=== PATIENT | female | born 1990 | race Caucasian/White ===

== ENCOUNTER → 2024-03-28 | Outpatient (CLI) | payer BC, SELFPAY ==
[2024-03-28 14:41] LABS: Hematocrit 43.9 % (37-47); Hemoglobin 14.8 g/dL (12.0-15.0); Mean Corp Hgb Conc 33.7 g/dL (32-36); Mean Corpuscular Hgb 30.8 pg (27.0-32.0); Mean Corpuscular Volume 91.5 fL (81-99); Mean Platelet Vol. 10.4 fl (6.2-12.0); Platelet Count 267 K/mm3 (150-450); RBC Distribution Width CV 12.2 % (11.6-14.6); RBC Distribution Width SD 41.2 fl (35.1-43.9)
[2024-03-28 15:05] LABS: Anion Gap 1 (5-15); BUN 11 mg/dL (7-18); BUN/Creat Ratio 11.7 RATIO (10-20); Calcium,Total 9.2 mg/dL (8.5-10.1); Chloride 108 mmol/L (98-107); Creatinine, Serum 0.94 mg/dL (0.55-1.02); EST Glomerular Filtration Rate 72 mL/min (>60); Est Glom Filt Rate - Afr Amer 87 mL/min (>60); Glucose 86 mg/dL (74-106); Potassium 4.1 mmol/L (3.5-5.1); Sodium Level 138 mmol/L (136-145)
== END | disposition home or self-care (01) ==
LOC: LAB 13:59
PROVIDERS: PCP Family Medicine; Referring Provider Plastic Surgery; Visit Provider Plastic Surgery
DX: L90.9 Atrophic disorder of skin, unspecified (principal); L30.4 Erythema intertrigo; Z87.898 Personal history of other specified conditions
CPT/HCPCS: 36415; 80048; 85027

== ENCOUNTER 2024-06-16 06:01 | Day surgery (SDC) | payer BC, SELFPAY ==
--- NOTE | 2024-06-02 13:31 | PAT.ANE_ITS ---
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 When Was Last Pacemaker Check QUESTION #4 FULL TEXT: You/Your Family Experience fever (hyperthermia) with Anesthesia Last Oral Intake Last Oral intake: Last Oral Intake NPO since Meds taken in AM with sips of water? Meds patient instructed to take am of surgery PONV PONV - soda fountain operator: PONV - soda fountain operator Female Yes 06/02/24 09:22 HX of Motion Sickness Yes 06/02/24 09:22 HX of N/V After Surgery Yes 06/02/24 09:22 Non-Smoker Yes 06/02/24 09:22 Duration of Surgery greater Yes 06/02/24 09:22 than 60 minutes Number of Risk Factors 5 06/02/24 09:22 PONV Score Severe Risk 06/02/24 09:22 Height & Weight Height & Weight: Anesthesia: Height & Weight Height 5 ft 6 in 04/18/24 10:26 Respiratory Assessment Respiratory Assessment - soda fountain operator: Respiratory Tract Infection Hx - soda fountain operator Hx Respiratory Tract Infection No 06/02/24 09:22 STOP Sleep Apnea STOP Sleep Apnea - soda fountain operator: STOP Sleep Apnea - soda fountain operator Hx Hypertension No 06/02/24 09:22 Hx Sleep Apnea No 06/02/24 09:22 CPAP BIPAP Do you snore loudly (louder No 06/02/24 09:22 than talking or can be heard Do you often feel tired/ No 06/02/24 09:22 fatigued/ sleepy during daytime? Has anyone observed you stop No 06/02/24 09:22 breathing during sleep? STOP Results Negative 06/02/24 09:22 QUESTION #5 FULL TEXT : Do you snore loudly (louder than talking or can be heard through closed doors)? 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 Specify any problems Hx of Preganancy in last 3 No 06/02/24 09:22 Months Nurse Filling Out Transfusion VCHRISTIN 06/02/24 09:22 & Questions: Date: 06/02/24 06/02/24 09:22 Time: 09:23 06/02/24 09:22 Patient unable to answer at this time (ie. confused, unrespo /Reproduction History /Reproductive History - soda fountain operator: /Reproductive Hx- soda fountain operator Hx Now No 06/02/24 09:22 Gestational Age (in weeks): EDC: Hx Hx Para Hx Section SAB No 06/02/24 09:22 [facility] Medical History (Updated 06/02/24 @ 09:21 by Montes Strange) Wears glasses Post-menopausal Cancer Anxiety Kidney stones Migraine headache Syncope Cardiology follow-up encounter History of Holter monitoring History of echocardiogram POTS (postural orthostatic tachycardia syndrome) History of frequent headaches Polycystic ovary Hormone deficiency History of melanoma Home Medications ?Medication ?Instructions ?Recorded ?Last Taken ?Type bupropion HCl 150 mg 24 hr tablet, 150 mg PO QAM 01/12 Unknown History extended release desvenlafaxine succinate 25 mg 25 mg PO QDAY 01/13/24 Unknown History tablet,extended release 24 hr spironolactone 100 mg tablet 100 mg PO QDAY 01/13/24 U nknown History topiramate 50 mg capsule,extended 50 mg PO BID 4 Unknown History release 24 hr sucralfate 1 gram tablet 1 g PO 4X/DAY 05/31/24 Unkno wn History omeprazole 40 mg capsule,delayed 40 mg PO DAILY Unknown History release rizatriptan 10 mg tablet 10 mg PO PRN PRN migraine Unknown History Allergy/AdvReac Type Severity Reaction Status Date / Time blueberry Allergy Severe Hives Verified 06/02/24 09:11 raspberry Allergy Severe Hives Verified 06/02/24 09:11 strawberry (strawberries) Allergy Swelling Verified 06/02/24 09:10 Family History Father Alcoholism Diabetes Mother Anxiety Surgical History (Updated 06/02/24 @ 09:21 by Montse Strange) History of laparoscopic cholecystectomy Hx of adenoidectomy History of bilateral breast reduction surgery History of hysterectomy History of delivery Social History Smoking Status: Never smoker alcohol intake: never substance use type: does not use additional social history: no vaping, no marijuana, no edibles, no asa, ibuprofen prn Audit: Pertinent Findings Pertinent Findings EKG Perinent findings: unremarkable ECG in 2024 Additional pertinent findings: Normal pulmonary function METS>=4 Recommendation Anesthesia Recommendation Anesthesia recommendation: OPTIMIZED for anesthesia
[2024-06-16] VITALS (12 sets, daily range): BP systolic 85–103; BP diastolic 46–68; PULSE 55–71; RESP 16; TEMP 36.1–37.2; O2SAT 92–100; BMI 30.2
--- NOTE | 2024-06-16 07:17 | PCM.HP.BLA ---
History and Physical Date of Admission: 06/16/24 The pt is examined and there are no changes to the H&P dated 05/31/24. Pt for panniculectomy. She is marked in the pre-op area. Informed consent is obtained. Assessment & Plan Assessment/Plan (1) History of weight loss: (2) Atrophic skin: (3) Intertrigo: PLAN: Plan Pt for panniculectomy.
--- NOTE | 2024-06-16 07:22 | PRE.ANES_ITS ---
ASA Classification* ASA Classification ASA Classification: 2 Assessment & Plan Anesthesia* Anesthesia Assessment Anesthesia Assessment: Discussed sedation and/or anesthesia options, risks, benefits, and alternatives with patient/parents/legal guardian/POA. Questions invited. The patient/parents/legal guardian/POA seems to understand and agrees to proceed with anesthesia plan. Reviewed the physical assessment, medical history, allergy history and patient home medications list prior to surgery/procedure/anesthetic and documented any changes. Performed airway and anesthesia risk assessments. Anesthesia Type Anesthesia Type: General History Source History Obtained from:: Patient and Chart Anesthesia Focused Assessment* Temperature: 97.7 F Pulse Rate: 55 Blood Pressure: 98/68 Respiratory Rate: 16 Pulse Ox: 100 Oxygen Delivery Method: Room Air Airway Assessment Mouth opens: >3 cm Mallampati Score: I Teeth Condition: Intact Neck Range of motion (ROM): Full ROM Focused Labs Anesthesia Preop lab: CBC WBC 8.0 K/mm3 (4.4-11.0) 03/28/24 14:04 03/28/24 RBC 4.80 M/mm3 (4.2-5.4) 03/28/24 14:04 03/28/24 Hgb 14.8 g/dL (12.0-15.0) 03/28/24 14:04 03/28/24 Hct 43.9 % (37-47) 03/28/24 14:04 03/28/24 Plt Count 267 K/mm3 (150-450) 03/28/24 14:04 03/28/24 CHEMISTRY Potassium 4.1 mmol/L (3.5-5.1) 03/28/24 14:04 03/28/24 Sodium 138 mmol/L (136-145) 03/28/24 14:04 03/28/24 BUN 11 mg/dL (7-18) 03/28/24 14:04 03/28/24 Creatinine 0.94 mg/dL (0.55-1.02) 03/28/24 14:04 03/28/24 Glucose 86 mg/dL (74-106) 03/28/24 14:04 03/28/24 COAG Pre-Assessment Diagnosis/Proposed Procedure Planned Operative Procedure(s): Abdominal Panniculectomy Anesthesia History 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 When Was Last Pacemaker Check QUESTION #4 FULL TEXT: You/Your Family Experience fever (hyperthermia) with Anesthesia Last Oral Intake Last Oral intake: Last Oral Intake NPO since 19:30 06/16/24 06:37 Meds taken in AM with sips of water? 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 Female Yes 06/02/24 09:22 HX of Motion Sickness Yes 06/02/24 09:22 HX of N/V After Surgery Yes 06/02/24 09:22 Non-Smoker Yes 06/02/24 09:22 Duration of Surgery greater Yes 06/02/24 09:22 than 60 minutes Number of Risk Factors 5 06/02/24 09:22 PONV Score Severe Risk 06/02/24 09:22 Height & Weight Height & Weight: Anesthesia: Height & Weight Height 5 ft 6 in 06/16/24 06:37 Weight: 85 kg 06/16/24 06:37 Body Mass Index (BMI) 30.2 06/16/24 06:37 Respiratory Assessment Respiratory Assessment - manufacturing supervisor 2nd shift: Respiratory Tract Infection Hx - manufacturing supervisor 2nd shift Hx Respiratory Tract Infection No 06/02/24 09:22 STOP Sleep Apnea STOP Sleep Apnea - manufacturing supervisor 2nd shift: STOP Sleep Apnea - manufacturing supervisor 2nd shift Hx Hypertension No 06/02/24 09:22 Hx Sleep Apnea No 06/02/24 09:22 CPAP BIPAP Do you snore loudly (louder No 06/02/24 09:22 than talking or can be heard Do you often feel tired/ No 06/02/24 09:22 fatigued/ sleepy during daytime? Has anyone observed you stop No 06/02/24 09:22 breathing during sleep? STOP Results Negative 06/02/24 09:22 QUESTION #5 FULL TEXT : Do you snore loudly (louder than talking or can be heard through closed doors)? 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 Specify any problems Hx of Preganancy in last 3 No 06/02/24 09:22 Months Nurse Filling Out Transfusion VCHRISTIN 06/02/24 09:22 & Questions: Date: 06/02/24 06/02/24 09:22 Time: 09:23 06/02/24 09:22 Patient unable to answer at this time (ie. 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: /Reproductive Hx- manufacturing supervisor 2nd shift Hx Now No 06/02/24 09:22 Gestational Age (in weeks): EDC: Hx Hx Para Hx Section SAB No 06/02/24 09:22 Active Medications Active Medications: Current Medications Generic Name Dose Route Start Last Admin Trade Name Freq PRN Reason Stop Dose Admin Cefazolin Sodium 2 gm/ N/A 20 mls @ 400 mls/hr 06/16/24 07:30 IV 06/16/24 07:32 PREOP ONE Sodium Chloride 1,000 mls @ 15 mls/hr 06/16/24 06:10 IV 06/21/24 19:29 .Q48H [facility] Protocol PFSH Medical History Wears glasses Post-menopausal Cancer Anxiety Kidney stones Migraine headache Syncope Cardiology follow-up encounter History of Holter monitoring History of echocardiogram POTS (postural orthostatic tachycardia syndrome) History of frequent headaches Polycystic ovary Hormone deficiency History of melanoma Home Medications ?Medication ?Instructions ?Recorded ?Last Taken ?Type bupropion HCl 150 mg 24 hr tablet, 150 mg PO QAM 01/1206/15/24 History extended release desvenlafaxine succinate 25 mg 25 mg PO QDAY 01/13/24 06/15/24 History tablet,extended release 24 hr spironolactone 100 mg tablet 100 mg PO QDAY 01/13/24 0 06/15/24 History topiramate 50 mg capsule,extended 50 mg PO BID 4 06/15/24 08:36 History release 24 hr sucralfate 1 gram tablet 1 g PO 4X/DAY 05/31/2406/15 History omeprazole 40 mg capsule,delayed 40 mg PO DAILY 06/15/24 08:35 History release rizatriptan 10 mg tablet 10 mg PO PRN PRN migraine Unknown History cephalexin 500 mg capsule 500 mg PO BID #14 caps 06/0706/15/24 20:33 Rx estradiol 0.5 mg tablet 0.5 mg PO QDAY 06/07/24 Unkn own History Allergy/AdvReac Type Severity Reaction Status Date / Time blueberry Allergy Severe Hives Verified 06/16/24 06:33 raspberry Allergy Severe Hives Verified 06/16/24 06:33 strawberry (strawberries) Allergy Swelling Verified 06/16/24 06:33 Family History Father Alcoholism Diabetes Mother Anxiety Surgical History History of laparoscopic cholecystectomy Hx of adenoidectomy History of bilateral breast reduction surgery History of hysterectomy History of delivery Social History Smoking Status: Never smoker alcohol intake: never substance use type: does not use additional social history: no vaping, no marijuana, no edibles, no asa, ibuprofen prn Review of Systems (Anesthesia) ROS Narrative System reviewed and no additional complaints, except as documented.
[2024-06-16] MEDS: Cefazolin 2 GM in Syringe IV (07:38)
[2024-06-16] MEDS: Gentamicin 80 MG/2 ML Vial (08:41)
[2024-06-16] MEDS: Bupivacaine 0.25% 30 ML Vial (10:19)
--- NOTE | 2024-06-16 10:57 | EX.PCM.DISCH ---
Discharge Instructions Dressing / Incision Additional Dressing/Incision Instructions:: Follow the instructions given in the office. Maintain a recliner position when resting. Follow Up Care Please Follow Up With: Ni Cochran MD When: In 1 week Test Results: Test results from this visit will be discussed in further detail at your follow-up appointment, if applicable. Discharge Plan Admission Attending Provider: Ni Cochran Primary Care Provider: MARA SHIRLEY Instructions Print Language: Norwegian Discharge Orders/Prescriptions Prescriptions: No Action desvenlafaxine succinate 25 mg tablet extended release 24 hr 25 mg PO QDAY spironolactone 100 mg tablet 100 mg PO QDAY topiramate 50 mg capsule,extended release 24hr 50 mg PO BID bupropion HCl 150 mg tablet extended release 24 hr 150 mg PO QAM sucralfate 1 gram tablet 1 g PO 4X/DAY estradiol 0.5 mg tablet 0.5 mg PO QDAY cephalexin 500 mg capsule 500 mg PO BID Qty: 14 0RF omeprazole 40 mg capsule,delayed release(DR/EC) 40 mg PO DAILY rizatriptan 10 mg tablet 10 mg PO PRN PRN (Reason: migraine) Referrals / Follow Up: MARA SHIRLEY MD [Primary Care Provider] - Disposition Disposition (needs filled in before D/C Order can be placed): Home, Self Care
--- NOTE | 2024-06-16 11:00 | PCM.OPRPT ---
Problems Associated Problem List Diagnoses (1) Atrophic skin: (2) History of weight loss: (3) Intertrigo: Operative Report (Standard) Operative Information Date of Procedure: 06/16/24 Pre-Operative Diagnosis: Abdominal panniculus, intertrigo Post-Operative Diagnosis: The same Surgery/Procedure Performed: Panniculectomy (1106 g) polystyrene bead molder: Yes Computer Information Science Professor: Herve Vargas Tasks completed by outpatient physical therapist assistant: Closing and Retracting Type of Anesthesia: General RN Documented Start/Stop Times: Operation Date: 06/16/24 07:30 Case Time Into Pre-Op 06/16/24 06:08 Out of Pre-Op 06/16/24 07:28 Anesthesia Start 06/16/24 07:30 Into Room 06/16/24 07:30 Procedure Start 06/16/24 08:01 Procedure End 06/16/24 10:52 Anesthesia End 06/16/24 10:53 Out of Room 06/16/24 10:53 Procedure Start Time: 08:01 Procedure Stop Time: 10:52 Select all DRAINS/GRAFTS/IMPLANTS that apply: None Estimated Blood Loss: 30 cc Specimen collected: No Description of surgery: The patient presents with recurrent intertrigo and an abdominal panniculus having lost a significant amount of weight and status post pregnancies. She presents for excision of the lower abdominal skin to relieve the symptoms. The procedure been thoroughly reviewed with the patient. The incisions and scars as well as limitations were reviewed. The patient is marked in the preop holding area prior to surgery. An informed consent is obtained. The patient is brought to the operating room and placed under general anesthesia in the supine position. Care is taken to pad all pressure points, apply a warming blanket, sequential compression stockings, and a Sosa catheter. The abdomen is prepped and draped in usual sterile fashion. Initially began with making the premarked incision. This is carried down through the subcutaneous tissue to the fascia of the abdominal wall. Dissection then is carefully continued cephalad ensuring the fascia remained intact. Once the premarked skin was undermined, the wound was irrigated with antibiotic solution and checked for hemostasis which was controlled with cautery. The patient is placed in a semi-Fowlers position and the redundant skin is marked. With a sterile towel placed beneath this skin, the skin was excised and passed off the operative field to be weighed. Hemostasis was controlled with argon coagulation. The wound is then tacked together with skin clips. With good alignment noted, some Vicryl sutures are placed in the subcutaneous tissue. The skin and subcutaneous tissue were then closed in 3 layers with a STRATAFIX suture. Minor revisions of dogear redundant skin is performed on the lateral aspects of the dissection. The skin is closed with a running subcuticular strata fix suture. 1/4% plain Marcaine is injected along the incision. Xeroform gauze is placed on the incisions followed by ABDs which are taped in place. The patient is then placed in an abdominal binder. She tolerated the procedure well was taken to the recovery area in an awake and stable condition. Needle and sponge counts are correct. Surgical Findings: As above Complications Complications: No Admit VTE Documentation VTE Mechan Device Prophylaxis: SCD's
--- NOTE | 2024-06-16 11:03 | PCM.POST.ANE ---
Anesthesia: Postop Eval I Current Vital Signs Temperature: 97 F Pulse Rate: 61 Blood Pressure: 95/49 Respiratory Rate: 16 Pulse Ox: 96 Oxygen Delivery Method: Room Air Assessment Airway patent: Yes Spontaneous unlabored respirations: Yes Mental status: Awake and Calm nausea: No Vomiting: No Anesthesia Complication: No Fluid Hydration Crystalloid volume administer (ml): 1,700 Total IV fluid infused: 1,700 Progress Note Anesthesia document: Postop Eval 1 completed: Yes
[2024-06-16] MEDS: Acetaminophen 325 MG Tablet 650 MG PO (13:09)
--- NOTE | 2024-06-16 18:25 | POSTOPAN2_ITS ---
Anesthesia Postop Eval I Sum Postop Eval Completion status Anesthesia document: Postop Eval 1 completed: Yes Anesthesia Postop Eval I Summary Anesthesia Postop Eval I Summary: Anesthesia Postop Eval I: Assessment Summary Airway patent Yes 06/16/24 11:03 INTERNSHIP COORDINATOR.[email or web address] Spontaneous unlabored Yes 06/16/24 11:03 INTERNSHIP COORDINATOR.GDOTT respirations Mental status Awake,Calm 06/16/24 11:03 INTERNSHIP COORDINATOR.GDOTT nausea No 06/16/24 11:03 INTERNSHIP COORDINATOR.GDOTT Vomiting No 06/16/24 11:03 INTERNSHIP COORDINATOR.GDOTT Anesthesia Postop Eval I: Fluid Summary Crystalloid volume administer 1,700 06/16/24 11:03 INTERNSHIP COORDINATOR.GDOTT (ml) Colloids volume administered ( ml) Blood Product volume administered (ml) Total IV fluid infused 1,700 06/16/24 11:03 INTERNSHIP COORDINATOR.GDOTT Anesthesia Postop Eval I: Summary Notes Anesthesia Complication No 06/16/24 11:03 INTERNSHIP COORDINATOR.GDOTT Anesthesia Complication Comment: Post-operative progress note Anesthesia: Postop Eval II Evaluation Mental status: Awake and Calm Pain Level: 3 nausea: No Vomiting: No Complications Anesthesia Complication: No
--- NOTE | 2024-06-16 18:25 | PCM.POSTANE2 ---
Anesthesia Postop Eval I Sum Postop Eval Completion status Anesthesia document: Postop Eval 1 completed: Yes Anesthesia Postop Eval I Summary Anesthesia Postop Eval I Summary: Anesthesia Postop Eval I: Assessment Summary Airway patent Yes 06/16/24 11:03 APPLICATION PACKAGING CONSULTANT.GDOTT Spontaneous unlabored Yes 06/16/24 11:03 APPLICATION PACKAGING CONSULTANT.GDOTT respirations Mental status Awake,Calm 06/16/24 11:03 APPLICATION PACKAGING CONSULTANT.GDOTT nausea No 06/16/24 11:03 APPLICATION PACKAGING CONSULTANT.GDOTT Vomiting No 06/16/24 11:03 APPLICATION PACKAGING CONSULTANT.GDOTT Anesthesia Postop Eval I: Fluid Summary Crystalloid volume administer 1,700 06/16/24 11:03 APPLICATION PACKAGING CONSULTANT.GDOTT (ml) Colloids volume administered ( ml) Blood Product volume administered (ml) Total IV fluid infused 1,700 06/16/24 11:03 APPLICATION PACKAGING CONSULTANT.GDOTT Anesthesia Postop Eval I: Summary Notes Anesthesia Complication No 06/16/24 11:03 APPLICATION PACKAGING CONSULTANT.GDOTT Anesthesia Complication Comment: Post-operative progress note Anesthesia: Postop Eval II Evaluation Mental status: Awake and Calm Pain Level: 3 nausea: No Vomiting: No Complications Anesthesia Complication: No
== END 2024-06-16 15:20 | disposition home or self-care (01) ==
LOC: SDC 06:01 → AC 06:03
PROVIDERS: PCP Family Medicine; Referring Provider Plastic Surgery; Visit Provider Plastic Surgery
PROC: 0JB80ZZ Excision of Abdomen Subcutaneous Tissue and Fascia, Open Approach (ICD-10-PCS; CPT 15830; principal; 2024-06-16 07:15)
DX: L90.9 Atrophic disorder of skin, unspecified (principal); L30.4 Erythema intertrigo; Z79.899 Other long term (current) drug therapy; F41.9 Anxiety disorder, unspecified; Z87.898 Personal history of other specified conditions
CPT/HCPCS: 15830; 00802; J2405